=== PATIENT | male | born 1990 | race Caucasian/White ===

== ENCOUNTER 2017-05-08 19:35 | Emergency (ER) | payer MEDICAID | END 2017-05-08 21:06 | disposition home or self-care (01) | LOC: D.ER 19:35 | DX: S00.11XA Contusion of right eyelid and periocular area, initial encounter (principal); Y04.2XXA Assault by strike against or bumped into by another person, initial encounter; Y93.89 Activity, other specified; Y92.89 Other specified places as the place of occurrence of the external cause; S01.01XA Laceration without foreign body of scalp, initial encounter; F31.89 Other bipolar disorder; F41.9 Anxiety disorder, unspecified; F20.9 Schizophrenia, unspecified; F17.200 Nicotine dependence, unspecified, uncomplicated ==

== ENCOUNTER 2017-09-11 19:21 | Emergency (ER) | payer MEDICARE ==
[2017-09-11 20:51] LABS: BASOPHILS 0.4 % (0-2); EOSINOPHILS 0.1 % (0-7); HEMATOCRIT 45.6 % (42.0-54.0); IMMATURE GRANULOCYTES 0.2 % (0-5); MCH 32.4 pg (26.0-34.0); MCHC 35.1 g/dL (31.0-37.0); MCV 92.3 fL (80.0-100.0); MEAN PLATELET VOLUME 11.2 fL (7.4-10.4); MONOCYTES 10.3 % (2-11); PLATELET COUNT 240 10x3/uL (130-400); RBC 4.94 10x6/uL (4.20-6.10); RDW 12.5 % (11.5-14.5); WBC 8.2 10x3/uL (4.8-10.8)
[2017-09-11 21:12] LABS: ALBUMIN 4.3 g/dL (3.4-5.0); ALKALINE PHOSPHATASE 58 U/L (46-116); ALT (SGPT) 39 U/L (10-68); BILIRUBIN - TOTAL 0.58 mg/dL (0.2-1.3); CALC OSMOLALITY 281 mosm/kg (275-300); CALCIUM 8.9 mg/dL (8.5-10.1); CARBON DIOXIDE 17.6 mmol/L (21.0-32.0); CHLORIDE - SERUM 106 mmol/L (98-107); GLUCOSE 100 mg/dL (74-106); POTASSIUM - SERUM 3.1 mmol/L (3.5-5.1); PROTEIN - SERUM 7.8 g/dL (6.4-8.2); SODIUM 142 mmol/L (136-145); UREA NITROGEN 10 mg/dL (7-18); eGFR NON AFRICAN AMERICAN > 90 mL/min (90-120)
[2017-09-11 22:48] LABS: APPEARANCE CLEAR (CLEAR); BILIRUBIN NEGATIVE (NEGATIVE); COLOR YELLOW (YELLOW); GLUCOSE NEGATIVE (NEGATIVE); KETONE SMALL mg/dL (NEGATIVE); NITRITE NEGATIVE (NEGATIVE); PROTEIN TRACE mg/dL (NEGATIVE); RED CELLS - URINE OCC /hpf (0-5); UROBILINOGEN NORMAL (NORMAL); WHITE CELLS - URINE 0-5 /hpf (0-5)
[2017-09-11 22:49] LABS: BACTERIA FEW /hpf (NONE SEEN); MUCUS >1+ /lpf (NONE SEEN)
[2017-09-11 22:57] LABS: UDS - AMPHET POSITIVE QUAL (NEGATIVE); UDS - BARB NEGATIVE QUAL (NEGATIVE); UDS - BENZO NEGATIVE QUAL (NEGATIVE); UDS - COCAINE NEGATIVE QUAL (NEGATIVE); UDS - OPIATE NEGATIVE QUAL (NEGATIVE); UDS - PCP NEGATIVE QUAL (NEGATIVE); UDS - THC POSITIVE QUAL (NEGATIVE)
== END 2017-09-12 00:43 | disposition short-term general hospital (02) ==
LOC: D.ER 19:21
PROVIDERS: Emergency Medicine
DX: F20.89 Other schizophrenia (principal); F23 Brief psychotic disorder; F17.200 Nicotine dependence, unspecified, uncomplicated

== ENCOUNTER 2018-06-01 12:13 | Emergency (ER) | payer MEDICARE ==
[~2018-06-01] VITALS: Ht 182.9 cm; Wt 109.1 kg
[2018-06-01 12:22] VITALS: Ht 182.9 cm; Wt 109.1 kg
[2018-06-01] MEDS ORDERED: LEXAPRO20 MG PO (12:25)
[2018-06-01] MEDS ORDERED: TRICOR145 MG PO (12:25)
[2018-06-01] MEDS ORDERED: ABILIFY10 MG PO (12:25)
[2018-06-01] MEDS ORDERED: ZYBAN150 MG PO (12:25)
[2018-06-01] MEDS ORDERED: GEODON40 MG PO (12:26)
[2018-06-01] MEDS ORDERED: DEPAKOTE500 MG PO (12:27)
[2018-06-01 12:42] LABS: APPEARANCE CLEAR (CLEAR); BILIRUBIN NEGATIVE (NEGATIVE); COLOR YELLOW (YELLOW); GLUCOSE NEGATIVE (NEGATIVE); KETONE NEGATIVE (NEGATIVE); NITRITE NEGATIVE (NEGATIVE); PROTEIN NEGATIVE (NEGATIVE); UROBILINOGEN NORMAL (NORMAL)
[2018-06-01 12:52] LABS: UDS - AMPHET NEGATIVE QUAL (NEGATIVE); UDS - BARB NEGATIVE QUAL (NEGATIVE); UDS - BENZO NEGATIVE QUAL (NEGATIVE); UDS - COCAINE NEGATIVE QUAL (NEGATIVE); UDS - OPIATE NEGATIVE QUAL (NEGATIVE); UDS - PCP NEGATIVE QUAL (NEGATIVE); UDS - THC POSITIVE QUAL (NEGATIVE)
[2018-06-01 12:54] LABS: BASOPHILS 0.6 % (0-2); EOSINOPHILS 5.1 % (0-7); HEMATOCRIT 46.8 % (42.0-54.0); HEMOGLOBIN 16.2 g/dL (13.5-17.5); IMMATURE GRANULOCYTES 0.2 % (0-5); LYMPHOCYTES 33.9 % (15-50); MCH 33.1 pg (26.0-34.0); MCHC 34.6 g/dL (31.0-37.0); MCV 95.7 fL (80.0-100.0); MEAN PLATELET VOLUME 10.3 fL (7.4-10.4); MONOCYTES 9.1 % (2-11); NEUTROPHILS 51.1 % (40-80); PLATELET COUNT 279 10x3/uL (130-400); RBC 4.89 10x6/uL (4.20-6.10); RDW 12.4 % (11.5-14.5); WBC 8.1 10x3/uL (4.8-10.8)
[2018-06-01 13:20] LABS: ALBUMIN 4.2 g/dL (3.4-5.0); ALKALINE PHOSPHATASE 56 U/L (46-116); ALT (SGPT) 29 U/L (10-68); BILIRUBIN - TOTAL 0.22 mg/dL (0.2-1.3); CALC OSMOLALITY 283 mosm/kg (275-300); CALCIUM 9.2 mg/dL (8.5-10.1); CARBON DIOXIDE 27.5 mmol/L (21.0-32.0); CHLORIDE - SERUM 104 mmol/L (98-107); CREATININE - SERUM 1.1 mg/dL (0.6-1.3); GLUCOSE 94 mg/dL (74-106); POTASSIUM - SERUM 4.2 mmol/L (3.5-5.1); PROTEIN - SERUM 7.6 g/dL (6.4-8.2); SODIUM 142 mmol/L (136-145); UREA NITROGEN 15 mg/dL (7-18); eGFR NON AFRICAN AMERICAN 84 mL/min (90-120)
[2018-06-01 14:46] VITALS: BP 136/90
== END 2018-06-01 14:46 ==
LOC: D.ER 12:13
PROVIDERS: Family Medicine
DX: F32.9 Major depressive disorder, single episode, unspecified (principal); F25.9 Schizoaffective disorder, unspecified; R45.851 Suicidal ideations; F17.200 Nicotine dependence, unspecified, uncomplicated

== ENCOUNTER 2018-11-09 11:00 | Emergency (ER) | payer MEDICARE ==
[~2018-11-09] VITALS: Ht 182.9 cm; Wt 96.9 kg
[~2018-11-09 11:00] MED LIST: ABILIFY10 MG PO; DEPAKOTE500 MG PO; GEODON40 MG PO; LEXAPRO20 MG PO; TRICOR145 MG PO; ZYBAN150 MG PO
[2018-11-09 11:02] VITALS: Ht 182.9 cm; Wt 96.9 kg
[2018-11-09] MEDS ORDERED: NAPROSYN500 MG PO (11:40)
[2018-11-09 12:03] VITALS: BP 128/72
== END 2018-11-09 12:04 | disposition home or self-care (01) ==
LOC: D.ER 11:00
DX: M79.641 Pain in right hand (principal); M70.42 Prepatellar bursitis, left knee; Y93.51 Activity, roller skating (inline) and skateboarding; F17.200 Nicotine dependence, unspecified, uncomplicated

== ENCOUNTER 2019-01-18 17:15 | Emergency (ER) | payer MEDICARE ==
[~2019-01-18] VITALS: Ht 182.9 cm; Wt 90.9 kg
[~2019-01-18 17:15] MED LIST changes: +NAPROSYN500 MG PO
[2019-01-18 17:21] VITALS: Ht 182.9 cm; Wt 90.9 kg
[2019-01-18] MEDS ORDERED: BACTRIM 400-801 TAB PO (18:01)
[2019-01-18] MEDS ORDERED: VOLTAREN75 MG PO (18:01)
[2019-01-18 18:21] VITALS: BP 138/89
== END 2019-01-18 18:21 | disposition home or self-care (01) ==
LOC: D.ER 17:15
DX: L03.314 Cellulitis of groin (principal)

== ENCOUNTER 2019-03-21 17:26 | Emergency (ER) | payer MEDICARE ==
[~2019-03-21 17:26] MED LIST changes: +BACTRIM 400-801 TAB PO; +VOLTAREN75 MG PO
[2019-03-21 17:33] VITALS: BMI 27.2
[2019-03-21] MEDS ORDERED: [UNRECOGNIZED DRUG - REMARK] (17:35)
[2019-03-21 18:29] LABS: BASOPHILS 0.3 % (0-2); EOSINOPHILS 2.4 % (0-7); HEMATOCRIT 48.5 % (42.0-54.0); HEMOGLOBIN 17.1 g/dL (13.5-17.5); IMMATURE GRANULOCYTES 0.3 % (0-5); LYMPHOCYTES 22.4 % (15-50); MCH 32.4 pg (26.0-34.0); MCHC 35.3 g/dL (31.0-37.0); MCV 91.9 fL (80.0-100.0); MEAN PLATELET VOLUME 10.6 fL (7.4-10.4); MONOCYTES 7.4 % (2-11); NEUTROPHILS 67.2 % (40-80); PLATELET COUNT 319 10x3/uL (130-400); RBC 5.28 10x6/uL (4.20-6.10); RDW 12.7 % (11.5-14.5); WBC 15.2 10x3/uL (4.8-10.8)
[2019-03-21 18:30] LABS: APPEARANCE CLEAR (CLEAR); BILIRUBIN NEGATIVE (NEGATIVE); COLOR YELLOW (YELLOW); GLUCOSE NEGATIVE (NEGATIVE); KETONE NEGATIVE (NEGATIVE); NITRITE NEGATIVE (NEGATIVE); PROTEIN NEGATIVE (NEGATIVE); UROBILINOGEN NORMAL (NORMAL)
[2019-03-21 18:45] LABS: UDS - AMPHET NEGATIVE QUAL (NEGATIVE); UDS - BARB NEGATIVE QUAL (NEGATIVE); UDS - BENZO NEGATIVE QUAL (NEGATIVE); UDS - COCAINE NEGATIVE QUAL (NEGATIVE); UDS - OPIATE NEGATIVE QUAL (NEGATIVE); UDS - PCP NEGATIVE QUAL (NEGATIVE); UDS - THC POSITIVE QUAL (NEGATIVE)
[2019-03-21 18:50] LABS: ALBUMIN 4.1 g/dL (3.4-5.0); ALKALINE PHOSPHATASE 60 U/L (46-116); ALT (SGPT) 28 U/L (10-68); BILIRUBIN - TOTAL 0.34 mg/dL (0.2-1.3); CALC OSMOLALITY 277 mosm/kg (275-300); CALCIUM 8.9 mg/dL (8.5-10.1); CARBON DIOXIDE 25.1 mmol/L (21.0-32.0); CHLORIDE - SERUM 102 mmol/L (98-107); GLUCOSE 90 mg/dL (74-106); POTASSIUM - SERUM 3.7 mmol/L (3.5-5.1); PROTEIN - SERUM 7.9 g/dL (6.4-8.2); SODIUM 137 mmol/L (136-145); UREA NITROGEN 23 mg/dL (7-18); eGFR NON AFRICAN AMERICAN > 90 mL/min (90-120)
[2019-03-22 02:40] VITALS: BP 127/76
== END 2019-03-22 03:10 ==
LOC: D.ER 17:26
PROVIDERS: Family Medicine
DX: F22 Delusional disorders (principal)

== ENCOUNTER 2019-06-17 09:34 | Emergency (ER) | payer MEDICARE ==
[~2019-06-17] VITALS: Ht 182.9 cm; Wt 90.9 kg
[~2019-06-17 09:34] MED LIST changes: +[UNRECOGNIZED DRUG - REMARK]
[2019-06-17 09:43] VITALS: Ht 182.9 cm; Wt 90.9 kg
[2019-06-17] MEDS ORDERED: LEXAPRO10 MG PO (09:47)
[2019-06-17 10:10] LABS: HEMATOCRIT 43.4 % (42.0-54.0); LYMPHOCYTES 40.8 % (15-50); MCHC 34.6 g/dL (31.0-37.0); MCV 92.5 fL (80.0-100.0); MEAN PLATELET VOLUME 10.1 fL (7.4-10.4); NEUTROPHILS 45.4 % (40-80); RBC 4.69 10x6/uL (4.20-6.10); WBC 5.9 10x3/uL (4.8-10.8)
[2019-06-17] MEDS ORDERED: ZYPREXA2.5 MG PO (10:14)
[2019-06-17 10:15] LABS: ALBUMIN 3.8 g/dL (3.4-5.0); ALKALINE PHOSPHATASE 65 U/L (46-116); ALT (SGPT) 21 U/L (10-68); BILIRUBIN - TOTAL 0.16 mg/dL (0.2-1.3); CALC OSMOLALITY 274 mosm/kg (275-300); CALCIUM 8.3 mg/dL (8.5-10.1); CARBON DIOXIDE 25.6 mmol/L (21.0-32.0); CHLORIDE - SERUM 105 mmol/L (98-107); CREATININE - SERUM 0.8 mg/dL (0.6-1.3); GLUCOSE 93 mg/dL (74-106); MAGNESIUM - SERUM 1.8 mg/dL (1.8-2.4); POTASSIUM - SERUM 3.8 mmol/L (3.5-5.1); PROTEIN - SERUM 6.9 g/dL (6.4-8.2); SODIUM 138 mmol/L (136-145); UREA NITROGEN 10 mg/dL (7-18); eGFR NON AFRICAN AMERICAN > 90 mL/min (90-120)
[2019-06-17 10:31] LABS: APPEARANCE CLEAR (CLEAR); BACTERIA FEW /hpf (NONE SEEN); BILIRUBIN NEGATIVE (NEGATIVE); COLOR YELLOW (YELLOW); GLUCOSE NEGATIVE (NEGATIVE); KETONE NEGATIVE (NEGATIVE); NITRITE NEGATIVE (NEGATIVE); PROTEIN NEGATIVE (NEGATIVE); SPECIFIC GRAVITY 1.005 (1.005-1.020); UROBILINOGEN NORMAL (NORMAL)
[2019-06-17 10:38] LABS: EPITHELIAL CELLS RARE /hpf (0-5); RED CELLS - URINE OCC /hpf (0-5); WHITE CELLS - URINE NSEEN /hpf (0-5)
[2019-06-17 10:39] LABS: HYALINE CAST NONE SEEN /lpf (NONE SEEN); MUCUS NONE SEEN /lpf (NONE SEEN)
[2019-06-17 10:40] LABS: PLATELET COUNT 249 10x3/uL (130-400)
[2019-06-17 10:43] LABS: UDS - AMPHET NEGATIVE QUAL (NEGATIVE); UDS - BARB NEGATIVE QUAL (NEGATIVE); UDS - BENZO NEGATIVE QUAL (NEGATIVE); UDS - COCAINE NEGATIVE QUAL (NEGATIVE); UDS - OPIATE NEGATIVE QUAL (NEGATIVE); UDS - PCP NEGATIVE QUAL (NEGATIVE); UDS - THC NEGATIVE QUAL (NEGATIVE)
--- NOTE | 2019-06-17 11:45 | NUR ---
DR. CHRISTY NOTIFIED AND REVIEWED PT'S BEHAVIOR AND ASSESSMENT RESULTS. PT IS A LOW RISK PER DR. CHRISTY. DR. CHRISTY STATED TO GIVE RESOURCES TO PT AT TIME OF DISCHARGE. NO FURTHER ORDERS AT THIS TIME. RESOURCES REVIEWED WITH PT AND HE VERBALIZED UNDERSTANDING.
[2019-06-17 19:17] VITALS: BP 116/70
== END 2019-06-17 22:00 ==
LOC: D.ER 09:34
PROVIDERS: Emergency Medicine
DX: F30.9 Manic episode, unspecified (principal); R45.1 Restlessness and agitation; N02.9 Recurrent and persistent hematuria with unspecified morphologic changes; Z91.14 Patient's other noncompliance with medication regimen

== ENCOUNTER 2019-10-05 18:14 | Emergency (ER) | payer MEDICARE ==
[~2019-10-05] VITALS: Ht 182.9 cm; Wt 90.9 kg
[~2019-10-05 18:14] MED LIST changes: +LEXAPRO10 MG PO; +ZYPREXA2.5 MG PO
[2019-10-05 18:24] VITALS: Ht 182.9 cm; Wt 90.9 kg
[2019-10-05 18:44] LABS: BASOPHILS 0.3 % (0-2); EOSINOPHILS 3.1 % (0-7); HEMOGLOBIN 16.1 g/dL (13.5-17.5); IMMATURE GRANULOCYTES 0.2 % (0-5); LYMPHOCYTES 24.1 % (15-50); MCH 32.5 pg (26.0-34.0); MCHC 34.3 g/dL (31.0-37.0); MCV 94.8 fL (80.0-100.0); MEAN PLATELET VOLUME 10.5 fL (7.4-10.4); MONOCYTES 6.8 % (2-11); NEUTROPHILS 65.5 % (40-80); PLATELET COUNT 278 10x3/uL (130-400); RBC 4.96 10x6/uL (4.20-6.10); RDW 12.3 % (11.5-14.5); WBC 10.6 10x3/uL (4.8-10.8)
--- NOTE | 2019-10-05 18:48 | NUR ---
DR. CHRISTY NOTIFIED AND SITTER ORDERED. SITTER AT BEDSIDE. NOTIFIED CHARGE NURSE AND ATTENDING IN REGARDS TO ASSESSMENT FINDINGS. RESOURCES GIVEN TO PT AND SAFETY PLAN INITIATED.
[2019-10-05 18:51] LABS: CALC OSMOLALITY 282 mosm/kg (275-300); CALCIUM 8.9 mg/dL (8.5-10.1); CARBON DIOXIDE 29.1 mmol/L (21.0-32.0); CHLORIDE - SERUM 104 mmol/L (98-107); CREATININE - SERUM 0.9 mg/dL (0.6-1.3); POTASSIUM - SERUM 3.7 mmol/L (3.5-5.1); SODIUM 141 mmol/L (136-145); UREA NITROGEN 11 mg/dL (7-18); eGFR NON AFRICAN AMERICAN > 90 mL/min (90-120)
[2019-10-05 18:52] LABS: GLUCOSE 144 mg/dL (74-106)
[2019-10-05 18:57] LABS: ALBUMIN 3.8 g/dL (3.4-5.0); ALKALINE PHOSPHATASE 57 U/L (46-116); ALT (SGPT) 22 U/L (10-68); BILIRUBIN - TOTAL 0.18 mg/dL (0.2-1.3); MAGNESIUM - SERUM 1.8 mg/dL (1.8-2.4); PROTEIN - SERUM 7.7 g/dL (6.4-8.2)
[2019-10-05 19:01] LABS: APPEARANCE CLEAR (CLEAR); BILIRUBIN NEGATIVE (NEGATIVE); COLOR YELLOW (YELLOW); GLUCOSE NEGATIVE (NEGATIVE); KETONE NEGATIVE (NEGATIVE); NITRITE NEGATIVE (NEGATIVE); PROTEIN NEGATIVE (NEGATIVE); UROBILINOGEN NORMAL (NORMAL)
[2019-10-05 19:10] LABS: UDS - AMPHET NEGATIVE QUAL (NEGATIVE); UDS - BARB NEGATIVE QUAL (NEGATIVE); UDS - BENZO NEGATIVE QUAL (NEGATIVE); UDS - COCAINE NEGATIVE QUAL (NEGATIVE); UDS - OPIATE NEGATIVE QUAL (NEGATIVE); UDS - PCP NEGATIVE QUAL (NEGATIVE); UDS - THC NEGATIVE QUAL (NEGATIVE)
[2019-10-05 23:35] VITALS: BP 120/72
== END 2019-10-05 23:36 | disposition other institution (70) ==
LOC: D.ER 18:14
PROVIDERS: Family Medicine
DX: R45.851 Suicidal ideations (principal); I10 Essential (primary) hypertension; Z72.0 Tobacco use